=== PATIENT | female | born 1955 | race Caucasian/White ===

== ENCOUNTER → 2016-11-30 | Outpatient (CLI) | payer MEDICARE ==
[~2016-11-30] MED LIST: ALPRAZOLAM ER1 MG PO; BUTRANS 10 MCG TD; CEFDINIR300 MG PO; CITALOPRAM HBR20 MG PO; COREG 3.125M3.125 MG PO; ELIQUIS5 MG PO; ENDOCET 7.5-321 EACH PO; ESTRADERM 0.05 M1 EA TD; GABAPENTIN600 MG PO; LACTULOSE20 GM/30 M PO; LANTUS INS100 UTS/M1 SQ; LASIX40 MG PO; NITROGLYCERIN0.4 MG SL; OMEGA 3 1,0001 EACH PO; PERCOCET 5-3251 EACH PO; PROTONIX40 MG PO; PROVENTIL HFA 61 INH INH; ROBITUSSIN DM473 ML PO; SINGULAIR10 MG PO; SOTALOL80 MG PO; SYMBICORT 80-41 INHA INH; WELLBUTRIN XL150 MG PO; ZOFRAN ODT4 MG PO; ZYLOPRIM 100 M100 MG PO
[2016-11-30 17:42] LABS: HEMOGLOBIN 14.5 gm/dl (12.3-15.3); RED BLOOD COUNT 4.54 M/UL (4.00-5.10); WHITE BLOOD COUNT 13.3 K/UL (4.5-11.0)
== END ==
LOC: LAB 16:50
PROVIDERS: Internal Medicine Nephrology
DX: N18.4 Chronic kidney disease, stage 4 (severe) (principal); D63.1 Anemia in chronic kidney disease
CPT/HCPCS: 36415; 80053; 80162; 82570; 82728; 83540; 83550; 84156; 85027

== ENCOUNTER 2017-01-02 22:32 | Inpatient (IN) | payer MEDICARE ==
[~2017-01-02] VITALS: Ht 172.7 cm; Wt 64.4 kg
[2017-01-03 00:35] LABS: HEMOGLOBIN 14.5 gm/dl (12.3-15.3); RED BLOOD COUNT 4.53 M/UL (4.00-5.10); WHITE BLOOD COUNT 17.9 K/UL (4.5-11.0)
[2017-01-03] MEDS ORDERED: ALPRAZOLAM ER1 MG PO (17:26)
[2017-01-03] MEDS ORDERED: ZYLOPRIM 100 M100 MG PO (17:26)
[2017-01-03] MEDS ORDERED: WELLBUTRIN XL150 MG PO (17:27)
[2017-01-03] MEDS ORDERED: BUTRANS 10 MCG TD (17:29)
[2017-01-03] MEDS ORDERED: COREG 3.125M3.125 MG PO (17:30)
[2017-01-03] MEDS ORDERED: GABAPENTIN600 MG PO (17:30)
[2017-01-03] MEDS ORDERED: CITALOPRAM HBR20 MG PO (17:30)
[2017-01-03] MEDS ORDERED: LANTUS INS100 UTS/M1 SQ (17:31)
[2017-01-03] MEDS ORDERED: SOTALOL80 MG PO (17:32)
[2017-01-03] MEDS ORDERED: SINGULAIR10 MG PO (17:32)
[2017-01-03] MEDS ORDERED: PROTONIX40 MG PO (17:32)
[2017-01-03] MEDS ORDERED: SYMBICORT 80-41 INHA INH (17:33)
[2017-01-03] MEDS ORDERED: LACTULOSE20 GM/30 M PO (17:34)
[2017-01-04 10:04] LABS: HEMOGLOBIN 13.2 gm/dl (12.3-15.3); RED BLOOD COUNT 4.14 M/UL (4.00-5.10); WHITE BLOOD COUNT 14.1 K/UL (4.5-11.0)
[2017-01-05 06:14] LABS: HEMOGLOBIN 12.4 gm/dl (12.3-15.3); RED BLOOD COUNT 3.89 M/UL (4.00-5.10); WHITE BLOOD COUNT 14.3 K/UL (4.5-11.0)
[2017-01-06 05:16] LABS: HEMOGLOBIN 11.5 gm/dl (12.3-15.3); RED BLOOD COUNT 3.66 M/UL (4.00-5.10); WHITE BLOOD COUNT 12.6 K/UL (4.5-11.0)
[2017-01-06] MEDS ORDERED: ELIQUIS5 MG PO (12:46)
[2017-01-06] MEDS ORDERED: PERCOCET 5-3251 EACH PO (14:29)
--- NOTE | 2017-01-06 16:47 | NUR ---
01/06/17 8317 PATIENT HAS NOT VOIDED SINCE REMOVAL OF LEVI CATHETER. STATED THAT SHE DOES NOT URINATE ALOT NORMALLY DUE TO HER KIDNEY DISEASE. STATES WANTS TO GO HOME. STATES THIS IS NORMAL AND FEELS WILL BE ABLE TO VOID LATER. NOTIFIED DR. JARQUIN. NEW ORDER NOTED TO D/C HOME AND EDUCATE TO RETURN TO ER IF UNABLE TO URINATE. PATIENT AND DAUGHTER EDUCATED ON URINARY RETENTION AND TO RETURN TO ER IF UNABLE TO VOID. PATIENT AND DAUGHTER GAVE VERBAL UNDERSTANDING OF TEACHING.
== END 2017-01-06 16:53 | disposition home health service (06) | DRG 493 ==
LOC: ER1 22:32 → ZEROF 01-03 00:23 → M/S 01-03 00:23 → ZEROF 01-03 00:23 → M/S 01-03 16:58
PROVIDERS: Emergency Medicine; Family Medicine; Orthopaedic Surgery; ADMIT Internal Medicine
PROC: 0QSH04Z Reposition Left Tibia with Internal Fixation Device, Open Approach (ICD-10-PCS; principal; 2017-01-04 12:30)
DX: S82.142A Displaced bicondylar fracture of left tibia, initial encounter for closed fracture (principal); N18.4 Chronic kidney disease, stage 4 (severe); N17.9 Acute kidney failure, unspecified; S82.892A Other fracture of left lower leg, initial encounter for closed fracture; S82.832A Other fracture of upper and lower end of left fibula, initial encounter for closed fracture; W10.8XXA Fall (on) (from) other stairs and steps, initial encounter; Y93.89 Activity, other specified; Y92.008 Other place in unspecified non-institutional (private) residence as the place of occurrence of the external cause; M24.811 Other specific joint derangements of right shoulder, not elsewhere classified; J44.9 Chronic obstructive pulmonary disease, unspecified; J45.909 Unspecified asthma, uncomplicated; F17.210 Nicotine dependence, cigarettes, uncomplicated; K59.09 Other constipation; I48.0 Paroxysmal atrial fibrillation; I12.9 Hypertensive chronic kidney disease with stage 1 through stage 4 chronic kidney disease, or unspecified chronic kidney disease; E86.0 Dehydration; E11.65 Type 2 diabetes mellitus with hyperglycemia; E11.22 Type 2 diabetes mellitus with diabetic chronic kidney disease; D63.1 Anemia in chronic kidney disease; K21.9 Gastro-esophageal reflux disease without esophagitis; G89.29 Other chronic pain; M54.9 Dorsalgia, unspecified; E78.5 Hyperlipidemia, unspecified; F32.9 Major depressive disorder, single episode, unspecified; F41.9 Anxiety disorder, unspecified; M50.30 Other cervical disc degeneration, unspecified cervical region; M51.36 Other intervertebral disc degeneration, lumbar region; M10.9 Gout, unspecified; Z79.01 Long term (current) use of anticoagulants; Z79.4 Long term (current) use of insulin; Z79.899 Other long term (current) drug therapy; Z84.1 Family history of disorders of kidney and ureter; Z82.79 Family history of other congenital malformations, deformations and chromosomal abnormalities; Z72.3 Lack of physical exercise; Z82.49 Family history of ischemic heart disease and other diseases of the circulatory system
CPT/HCPCS: 29505; 36415; 51702; 71010; 72100; 73030; 73502; 73560; 73590; 73610; 73630; 76000; 78452; 80048; 80053; 82962; 85025; 85027; 93005; 93017; 94640; 94664; 96374; 96375; 96376; 99285; A9502; C1713; J0690; J1200; J1650; J1817; J2250; J2270; J2405; J2550; J2785; J3010; J7030; J7050; J7120

== ENCOUNTER 2017-05-23 11:55 | Inpatient (IN) | payer MEDICARE ==
[~2017-05-23] VITALS: Ht 172.7 cm; Wt 70.3 kg
[~2017-05-23 11:55] MED LIST changes: -CEFDINIR300 MG PO; -ENDOCET 7.5-321 EACH PO; -ESTRADERM 0.05 M1 EA TD; -LASIX40 MG PO; -NITROGLYCERIN0.4 MG SL; -OMEGA 3 1,0001 EACH PO; -PROVENTIL HFA 61 INH INH; -ROBITUSSIN DM473 ML PO; -ZOFRAN ODT4 MG PO
[2017-05-23] MEDS ORDERED: ENDOCET 7.5-321 EACH PO (12:51)
[2017-05-23] MEDS ORDERED: CEFDINIR300 MG PO (12:54)
[2017-05-23] MEDS ORDERED: PROVENTIL HFA 61 INH INH (12:56)
[2017-05-23] MEDS ORDERED: OMEGA 3 1,0001 EACH PO (12:58)
[2017-05-23] MEDS ORDERED: ZOFRAN ODT4 MG PO (12:58)
[2017-05-23] MEDS ORDERED: LASIX40 MG PO (12:59)
[2017-05-23] MEDS ORDERED: ESTRADERM 0.05 M1 EA TD (12:59)
[2017-05-23] MEDS ORDERED: ROBITUSSIN DM473 ML PO (13:00)
[2017-05-23] MEDS ORDERED: NITROGLYCERIN0.4 MG SL (13:10)
[2017-05-24 03:44] LABS: HEMOGLOBIN 11.4 gm/dl (12.3-15.3); RED BLOOD COUNT 3.74 M/UL (4.00-5.10); WHITE BLOOD COUNT 12.2 K/UL (4.5-11.0)
[2017-05-25 04:42] LABS: HEMOGLOBIN 10.9 gm/dl (12.3-15.3); RED BLOOD COUNT 3.59 M/UL (4.00-5.10); WHITE BLOOD COUNT 14.4 K/UL (4.5-11.0)
[2017-05-26 05:48] LABS: HEMOGLOBIN 10.4 gm/dl (12.3-15.3); RED BLOOD COUNT 3.43 M/UL (4.00-5.10); WHITE BLOOD COUNT 15.9 K/UL (4.5-11.0)
[2017-05-27 06:00] LABS: HEMOGLOBIN 10.3 gm/dl (12.3-15.3); RED BLOOD COUNT 3.32 M/UL (4.00-5.10); WHITE BLOOD COUNT 14.1 K/UL (4.5-11.0)
== END 2017-05-27 21:07 | DRG 492 ==
LOC: OR 11:55 → CCU 19:54 → OR 20:04 → CCU 20:04 → M/S 05-24 20:18
PROVIDERS: Internal Medicine; ADMIT Orthopaedic Surgery
PROC: 0QB30ZZ Excision of Left Pelvic Bone, Open Approach (ICD-10-PCS; 2017-05-23)
PROC: 0QPH04Z Removal of Internal Fixation Device from Left Tibia, Open Approach (ICD-10-PCS; 2017-05-23)
PROC: 0QHH04Z Insertion of Internal Fixation Device into Left Tibia, Open Approach (ICD-10-PCS; 2017-05-23)
PROC: 0QUH07Z Supplement Left Tibia with Autologous Tissue Substitute, Open Approach (ICD-10-PCS; principal; 2017-05-23 14:30)
DX: S82.142K Displaced bicondylar fracture of left tibia, subsequent encounter for closed fracture with nonunion (principal); J18.9 Pneumonia, unspecified organism; T84.498A Other mechanical complication of other internal orthopedic devices, implants and grafts, initial encounter; J44.9 Chronic obstructive pulmonary disease, unspecified; F17.210 Nicotine dependence, cigarettes, uncomplicated; I12.9 Hypertensive chronic kidney disease with stage 1 through stage 4 chronic kidney disease, or unspecified chronic kidney disease; N18.3 Chronic kidney disease, stage 3 (moderate); E11.22 Type 2 diabetes mellitus with diabetic chronic kidney disease; G89.29 Other chronic pain; K21.9 Gastro-esophageal reflux disease without esophagitis; F41.9 Anxiety disorder, unspecified; I48.0 Paroxysmal atrial fibrillation; D72.829 Elevated white blood cell count, unspecified; Z79.4 Long term (current) use of insulin
CPT/HCPCS: 36415; 71020; 73590; 76000; 80048; 81001; 82962; 85027; 87077; 87086; 87186; 97110; 97116; 97530; 97535; C1713; J0690; J2405; J2795; J3370; J7030; J7120